=== PATIENT | male | born 1995 | race Caucasian/White ===

== ENCOUNTER 2016-07-27 15:14 | Emergency (ER) | payer MEDICAID, OTHER ==
[2016-07-27 15:22] VITALS: BP 122/78; PULSE 78; RESP 16; TEMP 97.5; O2SAT 95
--- NOTE | 2016-07-27 16:15 | EDPHY ---
H & P Smoking Status: Never smoked Time Seen by Provider: 07/27/16 15:53 HPI/ROS: CHIEF COMPLAINT: right hand laceration HISTORY OF PRESENT ILLNESS: 21-year-old male presents emergency department with a laceration to his right hand from a broken glass at work today. Patient is left hand dominant, tetanus is up-to-date, he denies numbness or tingling to his hand. No other complaints. (Jessica Wilde) Physical Exam: GEN: Awake, alert, oriented, no acute distress RESP: nl resp effort MSK: Left hand with full range of motion, 2 point discrimination intact SKIN: 1 cm superficial laceration to thenar eminence of left hand (Jessica Wilde) Constitutional: Initial Vital Signs Temperature (C) 36.4 C 07/27/16 15:19 Heart Rate 78 07/27/16 15:19 Respiratory Rate 16 07/27/16 15:19 Blood Pressure 122/78 H 07/27/16 15:19 O2 Sat (%) 95 07/27/16 15:19 O2 Delivery Mode Room Air Allergies/Adverse Reactions: Penicillins Allergy (Verified 11/19/11 13:02) MDM/Departure - MDM Procedures: Procedure: Laceration repair. Verbal consent was obtained from the patient. The 1 cm laceration on the right hand was anesthetized using 1% lidocaine with epinephrine. The wound was carefully irrigated by the emergency department compliance technician. Next, the wound was prepped and draped in sterile fashion and explored to its base with a gloved finger. There were no deep structures involved. No tendon injury was identified. No vascular injury was identified. No foreign bodies were identified. The wound was repaired with 5.0 Prolene, 3 simple interrupted sutures. The wound repair was simple. The procedure was performed by myself. Tetanus and antibiotic status were addressed. (Jessica Wilde) ED Course/Re-evaluation: This patient was evaluated and managed by the nurse practitioner. I have reviewed the chart and agree with the findings and plan of care as documented. ( Vesta Roth) - Depart Disposition: Home, Routine, Self-Care Clinical Impression: Laceration of right hand Qualifiers: Encounter type: initial encounter Foreign body presence: without foreign body Qualified Code(s): S61.411A - Laceration without foreign body of right hand, initial encounter Condition: Good Instructions: Laceration (ED) Additional Instructions: Return to the emergency department in 12-14 days for suture removal, return sooner for any signs of infection. Stand Alone Forms: Work Comp Follow Up Referrals: NONE *PRIMARY CARE P,. [Primary Care Provider] - As per Instructions
== END 2016-07-27 16:38 | disposition home or self-care (01) ==
PROC: 0HQFXZZ Repair Right Hand Skin, External Approach (ICD-10-PCS; principal; 2016-07-27)
DX: S61.411A Laceration without foreign body of right hand, initial encounter (principal); W25.XXXA Contact with sharp glass, initial encounter

== ENCOUNTER 2016-12-26 18:06 | Emergency (ER) | payer OTHER ==
--- NOTE | 2016-12-26 18:34 | EDPHY ---
H & P Time Seen by Provider: 12/26/16 18:17 HPI/ROS: CHIEF COMPLAINT: Foot puncture HISTORY OF PRESENT ILLNESS: The patient is a 21-year-old man who comes to the emergency department 8 hours after stepping on a sharp object at work. 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 The object went through the sole of his shoes and into his foot. He is having significant pain. No erythema. It did not break off. REVIEW OF SYSTEMS: Constitutional: denies: chills, fever, recent illness, recent injury EENTM: denies: blurred vision, double vision, nose congestion Respiratory: denies: cough, shortness of breath Cardiac: denies: chest pain, irregular heart rate, lightheadedness, palpitations Gastrointestinal/Abdominal: denies: abdominal pain, diarrhea, nausea, vomiting, blood streaked stools Genitourinary: denies: dysuria, frequency, hematuria, pain Musculoskeletal: denies: joint pain, muscle pain Skin: See HPI Neurological: denies: headache, numbness, paresthesia, tingling, dizziness, weakness Hematologic/Lymphatic: denies: blood clots, easy bleeding, easy bruising Immunologic/allergic: denies: HIV/AIDS, transplant EXAM: GENERAL: Well-appearing, well-nourished and in no acute distress. HEAD: Atraumatic, normocephalic. EYES: Pupils equal round and reactive to light, extraocular movements intact, sclera anicteric, conjunctiva are normal. ENT: TMs normal, nares patent, oropharynx clear without exudates. Moist mucous membranes. NECK: Normal range of motion, supple without lymphadenopathy or JVD. LUNGS: Breath sounds clear to auscultation bilaterally and equal. No wheezes rales or rhonchi. HEART: Regular rate and rhythm without murmurs, rubs or gallops. ABDOMEN: Soft, nontender, normoactive bowel sounds. No guarding, no rebound. No masses appreciated. BACK: No CVA tenderness, no spinal tenderness, step-offs or deformities EXTREMITIES: See diagram, normal range of motion and capillary refill. NEUROLOGICAL: Cranial nerves II through XII grossly intact. Normal speech, normal gait. 5/5 strength, normal movement in all extremities, normal sensation PSYCH: Normal mood, normal affect. SKIN: See diagram Source: Patient Exam Limitations: No limitations - Personal History Current Tetanus/Diphtheria Vaccine: Yes Tetanus Vaccine Date: WITHIN 5 YEARS - Medical/Surgical History Hx Asthma: No Hx Chronic Respiratory Disease: No Hx Diabetes: No Hx Cardiac Disease: No Hx Renal Disease: No Hx Cirrhosis: No Hx Alcoholism: No Hx HIV/AIDS: No Hx Splenectomy or Spleen Trauma: No Other PMH: denies PMH - Family History Significant Family History: No pertinent family hx - Social History Smoking Status: Never smoked Alcohol Use: Sober Drug Use: None Constitutional: Initial Vital Signs Temperature (C) 36.6 C 12/26/16 18:18 Heart Rate 78 12/26/16 18:18 Respiratory Rate 18 12/26/16 18:18 Blood Pressure 133/81 H 12/26/16 18:18 O2 Sat (%) 97 12/26/16 18:18 O2 Delivery Mode Room Air Allergies/Adverse Reactions: Penicillins Allergy (Verified 11/19/11 13:02) Home Medications: Medication Instructions Recorded Ciprofloxacin [Cipro] 500 mg PO BID #14 tab 12/26/16 ED Images - Extremities Feet Bottom Right/Left: 1 - 1/2 cm puncture wound, normal range of motion and sensation. Medical Decision Making - Diagnostics Imaging Results: Imaging Impressions Foot X-Ray 12/26/16 18:34 Impression: There is no radiopaque foreign body identified, nor is there any acute osseous abnormality. No foreign body seen Imaging: Discussed imaging studies w/ call manager Radiologist ED Course/Re-evaluation: The patient has a small puncture wound to his foot. I will start him on Cipro for Pseudomonas coverage. His wound was cleaned and dressed with sterile dressings. Differential Diagnosis: Partial list of the Differential diagnosis considered include but were not limited to; puncture wound, laceration and although unlikely based on the history and physical exam, I also considered tendon injury, nerve injury, vascular injury, fracture. I discussed these differential diagnoses and the plan with the patient as well as the usual and expected course. The patient understands that the diagnosis is provisional and that in medicine we are not always correct and that further workup is often warranted. Usual and customary warnings were given. All of the patient's questions were answered. The patient was instructed to return to the emergency department should the symptoms at all worsen or return, otherwise to followup with the physician as we discussed. - Data Points Medications Given: Discontinued Medications Hydrocodone Bitart/Acetaminophen (Briggs 5/325mg Prepack#6) 1 btl TAKEHOME EDNOW ONE Stop: 12/26/16 19:02 Last Admin: 12/26/16 19:09 Dose: 1 btl Ciprofloxacin (Cipro) 500 mg PO EDNOW ONE PRN Reason: Protocol Stop: 12/26/16 18:49 Last Admin: 12/26/16 18:55 Dose: 500 mg Diphtheria/Tetanus/Acell Pertussis (Boostrix) 0.5 ml IM .ONCE ONE Stop: 12/26/16 18:47 Last Admin: 12/26/16 18:56 Dose: 0.5 ml Departure - Departure Disposition: Home, Routine, Self-Care Clinical Impression: Puncture wound of right foot Qualifiers: Encounter type: initial encounter Qualified Code(s): S91.331A - Puncture wound without foreign body, right foot, initial encounter Condition: Fair Instructions: Hydrocodone/Acetaminophen (By mouth), Puncture Wound (ED) Referrals: NONE *PRIMARY CARE P,. [Primary Care Provider] - As per Instructions Stand Alone Forms: Work Excuse Prescriptions: Ciprofloxacin [Cipro] 500 mg PO BID #14 tab
[2016-12-26 18:37] VITALS: BP 133/81; PULSE 78; RESP 18; TEMP 98; O2SAT 97
[2016-12-26] MEDS ORDERED: TDAP ADULT 0.5 ML INJ (BOOSTRIX) IM ONE (18:46)
[2016-12-26] MEDS ORDERED: CIPROFLOXACIN 500 MG TAB PO ONE (18:48)
[2016-12-26] MEDS ORDERED: HYDROCOD/APAP 5/325 PREPACK#6 BTL TAKEHOME ONE (19:01)
== END 2016-12-26 19:18 | disposition home or self-care (01) ==
LOC: CED 18:06
DX: S91.331A Puncture wound without foreign body, right foot, initial encounter (principal); Z23 Encounter for immunization; W45.8XXA Other foreign body or object entering through skin, initial encounter; Y92.69 Other specified industrial and construction area as the place of occurrence of the external cause; Y99.0 Civilian activity done for income or pay; Y93.89 Activity, other specified
CPT/HCPCS: 73620-PO

== ENCOUNTER 2017-12-23 17:22 | Emergency (ER) | payer OTHER ==
[2017-12-23 17:28] VITALS: BP 109/86
--- NOTE | 2017-12-23 17:32 | EDPHY ---
H & P Stated Complaint: R wrist lac Time Seen by Provider: 12/23/17 17:31 HPI/ROS: HPI: This is a 22-year-old male who presents with Chief Complaint: Right wrist laceration Location: Right wrist Quality: Laceration Duration: Prior to arrival Signs and Symptoms: + bleeding, no radiation, no numbness, no weakness, no tingling, no incontinence, no decreased range of motion, no swelling, no pain, no fever Timing: Acute Severity: Mild Context: Patient is right-hand dominant, presents with accidentally cutting his right volar aspect of his wrist on a razor blade while working on a car at work this afternoon. Patient reports that it started to bleed he applied direct pressure but would not stop. He denies any paresthesias, weakness, decreased range of motion. Reports tetanus is current. Modifying Factors: Direct pressure Comment: ROS: A comprehensive 10 system review of systems is otherwise negative aside from elements mentioned in the history of present illness. MEDICAL/SURGICAL/SOCIAL HISTORY: Medical history: Asthma Surgical history: Right knee arthroscopy Social history: Never smoked CONSTITUTIONAL: Polite and cooperative young adult white male, awake and alert , no obvious distress HEENT: Atraumatic and normocephalic. NECK: supple EXTREMITIES: 2/2 pulses, strength 5/5, right WRIST: Volar aspect shows 2.5 cm vertical incision at the crease-no active bleeding. Extension to 70, flexion to 80, radial deviation to 20 degree, ulnar deviation to 30. DIP/PIP/MCP flexion/extension intact with good light touch sensation. no deformities, no clubbing, no cyanosis or edema. NEUROLOGICAL: no focal neuro deficits. GCS 15. Light touch sensation intact. SKIN: Warm and dry, no erythema. no rash. Good capillary refill. Source: Patient Exam Limitations: No limitations - Personal History Current Tetanus/Diphtheria Vaccine: Yes Current Tetanus Diphtheria and Acellular Pertussis (TDAP): Yes Tetanus Vaccine Date: WITHIN 5 YEARS - Medical/Surgical History Hx Asthma: Yes Hx Chronic Respiratory Disease: No Hx Diabetes: No Hx Cardiac Disease: No Hx Renal Disease: No Hx Cirrhosis: No Hx Alcoholism: No Hx HIV/AIDS: No Hx Splenectomy or Spleen Trauma: No Other PMH: R knee surgery, asthma - Social History Smoking Status: Never smoked Constitutional: Initial Vital Signs Temperature (C) 36.8 C 12/23/17 17:26 Heart Rate 80 18 17:26 Respiratory Rate 16 18 17:26 Blood Pressure 109/86 H 12/23/17 17:26 O2 Sat (%) 98 12/23/17 17:26 O2 Delivery Mode Room Air Allergies/Adverse Reactions: Penicillins Allergy (Verified 12/23/17 17:26) Home Medications: Medication Instructions Recorded NK [No Known Home Meds] 09/23/17 Medical Decision Making Procedures: Procedure: Laceration repair. Verbal consent was obtained from the patient. The 2.5 cm, simple, vertical laceration on the right wrist was anesthetized in the usual fashion 6 mL of 1% lidocaine with epinephrine. The wound was irrigated, draped and explored to its base with a gloved finger. There were no deep structures involved. No tendon injury was identified. The wound was repaired with #4, 5 0 Prolene in a simple interrupted pattern. Good hemostasis was achieved and patient tolerated procedure well. Clean sterile dressing applied. The procedure was performed by myself. ED Course/Re-evaluation: Vital signs reviewed and stable upon arrival. Tetanus is current. Local anesthesia provided, irrigated copiously, laceration repair Clean sterile dressing applied. Given written and verbal wound care instructions. No signs of neurovascular compromise/tenting of skin/compartment syndrome/ extremities and joints examined above and below area of concern and are neurovascularly intact. This patient was seen under the supervision of my secondary supervising physician. I evaluated care for this patient independently. Discussed this patient with Dr. Bravo. Differential Diagnosis: Differential diagnosis includes but is not limited to laceration, tendon injury , nerve injury, arterial injury. Departure - Departure Disposition: Home, Routine, Self-Care Clinical Impression: Laceration of right wrist without complication Qualifiers: Encounter type: initial encounter Qualified Code(s): S61.511A - Laceration without foreign body of right wrist, initial encounter Condition: Good Instructions: Care For Your Stitches (ED), Laceration (ED) Additional Instructions: Keep the dressing dry and in place for 48 hours. After 48 hours, you may remove the dressing; wash the site daily with mild soap and water; then pat dry. Take Tylenol 650 mg every 4 hours and/or Ibuprofen 600 mg every 8 hours with food as needed for pain. Wound Care Follow-Up: Removal of sutures in [7-10] days. Suture removal is complimentary in uncomplicated cases. Infection or abnormal findings would require reevaluation by the MD. In that case, you may be billed. Referrals: [facility],. [Clinic] - As per Instructions
== END 2017-12-23 18:10 | disposition home or self-care (01) ==
PROC: 0HQFXZZ Repair Right Hand Skin, External Approach (ICD-10-PCS; principal; 2017-12-23)
DX: S61.511A Laceration without foreign body of right wrist, initial encounter (principal); J45.909 Unspecified asthma, uncomplicated; W26.8XXA Contact with other sharp object(s), not elsewhere classified, initial encounter; Y92.810 Car as the place of occurrence of the external cause; Y99.0 Civilian activity done for income or pay
CPT/HCPCS: L3984